=== PATIENT | male | born 1940 | race Caucasian/White ===

== ENCOUNTER 2017-11-30 10:44 | Emergency (ER) | payer OTHER ==
[2017-11-30] MEDS ORDERED: oxyCODONE TAB* 5 MG TAB PO ONE (11:31)
--- NOTE | 2017-11-30 11:50 | RAD ---
Indication: Left hip pain. 2 views of left hip and an AP view of the pelvis demonstrates no fracture. Pelvic ring is intact. Sacral iliac joints are intact. There is some calcifications along the lateral margin of the acetabulum. This may represent early degenerative change. 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
--- NOTE | 2017-11-30 12:30 | ED ---
Lower Extremity - HPI Summary HPI Summary: 76 year male presents with left hip pain for the past couple days. No injury. Has a history of back pain. States had a history with a right hip and feels same. States that a cortisone shot for joint works well. No fevers. No numbness or tingling. No weakness. Pain is worse when he tries to ambulate. Has been taking his normal pain medication of Tylenol threes with minimal relief. No saddle anesthesia or loss of bowel or bladder. No previous fracture to the area. Does not have a history of left hip pain. - History of Current Complaint Chief Complaint: EDExtremityLower Stated Complaint: LT HIP PAIN Time Seen by Provider: 11/30/17 11:02 Pain Intensity: 10 - Allergies/Home Medications Allergies/Adverse Reactions: Allergies Allergy/AdvReac Type Severity Reaction Status Date / Time celecoxib [From Celebrex] Allergy Hives Verified 11/30/17 10:52 Sulfa (Sulfonamide Allergy Hives Verified 11/30/17 10:52 Antibiotics) PMH/Surg Hx/FS Hx/Imm Hx Endocrine/Hematology History: Denies: Hx Anticoagulant Therapy Cardiovascular History: Denies: Hx Myocardial Infarction Infectious Disease History: No Infectious Disease History: Denies: Traveled Outside the [place] in Last 30 Days - Family History Known Family History: Positive: Hypertension - Social History Alcohol Use: Occasionally Substance Use Type: Reports: None Smoking Status (MU): Never Smoked Tobacco Review of Systems Negative: Fever Negative: Chest Pain Negative: Shortness Of Breath Positive: Myalgia - left hip pain All Other Systems Reviewed And Are Negative: Yes Physical Exam Triage Information Reviewed: Yes Vital Signs On Initial Exam: Initial Vitals Temp Pulse Resp BP Pulse Ox 97.8 F 67 20 129/62 99 11/30/17 10:47 11/30/17 10:47 11/30/17 10:47 11/30/17 10:47 11/30/17 10:47 Vital Signs Reviewed: Yes Appearance: Positive: Well-Appearing Skin: Positive: Warm, Dry Head/Face: Positive: Normal Head/Face Inspection Eyes: Positive: Normal, Conjunctiva Clear ENT: Positive: Pharynx normal Respiratory/Lung Sounds: Positive: Clear to Auscultation, Breath Sounds Present Cardiovascular: Positive: Normal, RRR Musculoskeletal: Positive: Limited @ - left hip, Other - tenderness left hip and SI joint, pos HUBERT test, good pulses, capillary refill<2secs Neurological: Positive: Normal Psychiatric: Positive: Normal Diagnostics - Vital Signs Vital Signs Temp Pulse Resp BP Pulse Ox 11/30/17 10:47 97.8 F 67 20 129/62 99 - Laboratory Lab Statement: Any lab studies that have been ordered have been reviewed, and results considered in the medical decision making process. - Radiology hip left Xray Interpretation: Positive (See Comments) - IMPRESSION: Likely early degenerative changes of the left hip. Radiology Interpretation Completed By: Radiologist Lower Extremity Course/Dx - Course Course Of Treatment: 76 year male presents with left hip pain for the past couple days. No injury. Has a history of back pain. States had a history with a right hip and feels same. States that a cortisone shot for joint works well. No fevers. No numbness or tingling. No weakness. Pain is worse when he tries to ambulate. Has been taking his normal pain medication of Tylenol threes with minimal relief. No saddle anesthesia or loss of bowel or bladder. No previous fracture to the area. Does not have a history of left hip pain. On exam tenderness over left hip neurovascular intact. Positive HUBERT test. X- ray shows degenerative changes. Will add on oxycodone for pain medication. Told to follow with orthopedic for possible joint injection as do not do them in the ED. Patient understands agrees with plan. - Diagnoses Differential Diagnosis/HQI/PQRI: Positive: Fracture (Closed), Sprain, Strain Provider Diagnoses: Left hip pain Discharge - Sign-Out/Discharge Documenting (check all that apply): Discharge/Admit/Transfer - Discharge Plan Condition: Good Disposition: HOME Prescriptions: Docusate CAP* [Colace Cap*] 100 mg PO DAILY #7 cap oxyCODONE TAB* [Roxycodone TAB 5 mg*] 5 mg PO Q6H PRN #18 tab MDD 4 PRN Reason: Pain Patient Education Materials: Hip Pain (ED) Forms: *Gen. Provider Communication Referrals: No Primary Care Phys,NOPCP [Primary Care Provider] - Jarrett Flynn MD [Medical Doctor] - Additional Instructions: Take Tylenol or ibuprofen every 6 hours as needed for pain take oxycodone every 6 hours as needed for pain take colace once a day to prevent constipation with pain medication Follow up with ortho ice/ heat on area Return to ED if develop any new or worsening symptoms - Billing Disposition and Condition Condition: GOOD Disposition: Home
[2017-11-30] MEDS ORDERED: Ketorolac INJ* 30 MG/ML 1 ML VIAL IM ONE (12:43)
[2017-11-30 12:58] VITALS: BP 166/81
== END 2017-11-30 12:57 | disposition home or self-care (01) ==
LOC: ED 10:44
DX: M25.552 Pain in left hip (principal)
CPT/HCPCS: 96372; 99282; A9270-GY; J1885

== ENCOUNTER 2023-05-01 18:08 | Observation (INO) ==
[2023-05-01] MEDS ORDERED: Iodixanol (CONTRAST) 320 MG/ML 100 ML SDV IV ONE (18:27)
[2023-05-01 18:51] LABS: ABS Basophils 0.1 10^3/uL (0.0-0.1); ABS Eosinophils 0.1 10^3/uL (0.0-0.5); ABS Lymphocytes 0.9 10^3/uL (1.0-4.8); ABS Monocytes 0.5 10^3/uL (0.0-1.1); ABS Neutrophils 4.1 10^3/uL (1.5-7.6); Eosinophil % 0.9 %; Hemoglobin 12.8 g/dL (13.2-16.3); Lymphocyte % 16.3 %; Mean Corpuscular Hemoglobin 32.9 pg (27-33); Mean Corpuscular Hgb Conc 34.7 g/dL (31-36); Mean Corpuscular Volume 94.8 fL (80-97); Mean Platelet Volume 7.9 fL (7.5-11.2); Platelet Count 158 10^3/uL (150-450); Red Blood Count 3.91 10^6/uL (4.06-5.63); Red Cell Distribution Width 15.1 % (12-17); White Blood Count 5.7 10^3/uL (3.6-10.2)
[2023-05-01 19:03] LABS: Activated Partial Thrombo Time 32.2 seconds (26.0-38.0); INR 1.06 (0.83-1.13)
[2023-05-01 19:09] LABS: Albumin 3.7 g/dL (3.2-5.2); Albumin/Globulin Ratio 1.9 (1-3); Calcium 8.8 mg/dL (8.6-10.3); Creatinine, Serum 0.93 mg/dL (0.67-1.17); Direct Bilirubin 0.1 mg/dL (0.03-0.18); HDL Cholesterol 57.2 mg/dL; Indirect Bilirubin 0.4 mg/dL (0.3-1.0); Potassium 4.1 mmol/L (3.5-5.0); Total Bilirubin 0.5 mg/dL (0.2-1.0); Total Protein 5.7 g/dL (6.4-8.9)
[2023-05-01 19:15] LABS: Urine Appearance Clear; Urine Bilirubin Negative (Negative); Urine Blood Negative (Negative); Urine Color Straw; Urine Glucose Negative (Negative); Urine Ketones Negative (Negative); Urine Nitrite Negative (Negative); Urine Protein Negative (Negative); Urine Specific Gravity 1.009 (1.002-1.030); Urine Urobilinogen Negative (Negative)
[2023-05-01] MEDS: Enoxaparin 40 MG/0.4 ML SYR SUBCUT SCH (21:14)
[2023-05-02] MEDS: DULoxetine DR 60 mg CAP PO SCH (09:05)
[2023-05-02] MEDS: Mometasone 220 MCG MDI INH SCH (18:57)
[2023-05-02] MEDS: Enoxaparin 40 MG/0.4 ML SYR SUBCUT SCH (21:03)
[2023-05-03] MEDS: DULoxetine DR 60 mg CAP PO SCH (09:25)
[2023-05-03] MEDS: Mometasone 220 MCG MDI INH SCH (19:28)
[2023-05-03] MEDS: Enoxaparin 40 MG/0.4 ML SYR SUBCUT SCH (21:18)
[2023-05-04] MEDS: DULoxetine DR 60 mg CAP PO SCH (10:08)
[2023-05-04] MEDS: Mometasone 220 MCG MDI INH SCH (20:14)
[2023-05-04] MEDS: Enoxaparin 40 MG/0.4 ML SYR SUBCUT SCH (21:10)
[2023-05-05] MEDS: DULoxetine DR 60 mg CAP PO SCH (08:31)
[2023-05-05 20:48] VITALS: BP 125/58
== END 2023-05-05 17:10 | disposition home or self-care (01) ==
LOC: ED 18:08 → SUATTDRO 20:18 → INTOOBSV 20:18 → EDHOLD 20:18 → MEDTELE 05-02 14:14
PROVIDERS: ADMIT Student in an Organized Health Care Education/Training Program; ATTEND Internal Medicine